=== PATIENT | male | born 1995 | race African-American/Black ===

== ENCOUNTER 2017-06-08 19:53 | Emergency (ER) | payer MEDICAID ==
[~2017-06-08] VITALS: Ht 177.8 cm; Wt 121.0 kg
[2017-06-08] MEDS ORDERED: ONDANSETRON HCL 4MG/2ML VIAL IV STA (21:04)
[2017-06-08] MEDS ORDERED: SODIUM CHLORIDE 0.9% 1,000 ML IV ONE (21:04)
[2017-06-08 21:25] LABS: HEMATOCRIT. 42.3 % (42.0-52.0); HEMOGLOBIN. 13.7 g/dL (14.0-18.0); MEAN CORPUSCULAR HEMOGLOBIN 28.7 pg (28.0-32.0); MEAN CORPUSCULAR VOLUME 88.7 fL (80.0-94.0); MEAN PLATELET VOLUME 8.3 fl (7.4-10.4); PLATELET 265 x1000/uL (130-400); RED BLOOD CELL COUNT 4.77 mill/uL (4.7-6.1); RED CELL DISTRIBUTION WIDTH 12.7 % (11.6-14.6)
[2017-06-08 21:26] LABS: CHLORIDE 105 mEq/L (98-107)
[2017-06-08 21:33] LABS: CARBON DIOXIDE 26 mEq/L (21-32)
[2017-06-08 22:03] LABS: PLATELET ESTIMATE NORMAL
[2017-06-09] MEDS ORDERED: ONDANSETRON HCL 4MG/2ML VIAL IV ONE (00:45)
[2017-06-09 01:46] VITALS: BP 119/71
== END 2017-06-09 01:50 | disposition home or self-care (01) ==
LOC: ER 19:53
DX: R19.7 Diarrhea, unspecified (principal); R11.2 Nausea with vomiting, unspecified; F12.10 Cannabis abuse, uncomplicated
CPT/HCPCS: 36415; 80053; 85025; 96361; 96374; 96376; 99284; J2405; J7030; Z7610

== ENCOUNTER 2017-06-13 11:32 | Emergency (ER) | payer BC, MEDICAID ==
[~2017-06-13] VITALS: Ht 177.8 cm; Wt 121.0 kg
[2017-06-13 11:39] VITALS: BP 152/60
== END 2017-06-13 18:01 | disposition left against medical advice (07) ==
LOC: ER 13:09
DX: R11.2 Nausea with vomiting, unspecified (principal); Z53.21 Procedure and treatment not carried out due to patient leaving prior to being seen by health care provider

== ENCOUNTER 2019-07-11 23:14 | Emergency (ER) | payer BC, MEDICAID ==
[~2019-07-11] VITALS: Ht 177.8 cm; Wt 109.0 kg
[2019-07-12 02:06] VITALS: BP 106/53
== END 2019-07-12 03:32 | disposition home or self-care (01) ==
LOC: ER 23:14
DX: S62.396A Other fracture of fifth metacarpal bone, right hand, initial encounter for closed fracture (principal); F12.10 Cannabis abuse, uncomplicated; W22.8XXA Striking against or struck by other objects, initial encounter; Y93.89 Activity, other specified; Y92.018 Other place in single-family (private) house as the place of occurrence of the external cause
CPT/HCPCS: 29125; 73130; 99283